=== PATIENT | female | born 1985 ===

== ENCOUNTER 2017-12-27 17:42 | Inpatient (IN) | payer OTHER ==
[~2017-12-27] VITALS: Ht 157.5 cm; Wt 96.2 kg
[2018-01-11] MEDS ORDERED: FOLIC ACID0.4 MG PO (06:11)
[2018-01-11] MEDS ORDERED: OBSTETRIX EC C1 EACH PO (06:11)
[2018-01-11] MEDS ORDERED: B12 (06:12)
== END 2018-01-13 14:47 | DRG 775 ==
LOC: LDR 01-11 05:11 → OB/GYN 01-11 05:11 → SURG 01-17 09:15
PROC: 10E0XZZ Delivery of Products of Conception, External Approach (ICD-10-PCS; principal; 2018-01-11)
PROC: 0KQM0ZZ Repair Perineum Muscle, Open Approach (ICD-10-PCS; 2018-01-11)
PROC: 3E0P7VZ Introduction of Hormone into Female Reproductive, Via Natural or Artificial Opening (ICD-10-PCS; 2018-01-11)
PROC: 3E033VJ Introduction of Other Hormone into Peripheral Vein, Percutaneous Approach (ICD-10-PCS; 2018-01-11)
PROC: 4A1HXCZ Monitoring of Products of Conception, Cardiac Rate, External Approach (ICD-10-PCS; 2018-01-11)
DX: O24.420 Gestational diabetes mellitus in childbirth, diet controlled (principal); O70.1 Second degree perineal laceration during delivery; Z3A.39 39 weeks gestation of pregnancy; Z37.0 Single live birth